=== PATIENT | female | born 1965 ===

== ENCOUNTER 2017-01-26 18:07 | Emergency (ER) | payer BC ==
[2017-01-26 18:26] VITALS: RESP 18
[2017-01-26] MEDS ORDERED: Lidocaine 5% Patch TD STA (19:12)
[2017-01-26] MEDS ORDERED: Lidocaine 5% Patch TD ONE (19:16)
--- NOTE | 2017-01-26 19:37 | ED PDOC ---
HPI: Trauma/Fall - HPI Time Seen by Provider: 01/26/17 18:41 Chief Complaint (Nursing): Rib Injury Chief Complaint (Provider): Left Rib Pain History Per: Patient History/Exam Limitations: no limitations Onset/Duration Of Symptoms: Days (6) Severity: Mild Additional History Per: Patient Additional Complaint(s): 51 y/o female c/o right sided rib pain that started 6 days ago after falling out of bed at 02:30 am. Pain is sharp and constant. Patient took Ibuprofen and Aleve, but over the last 3 days she developed cough with greenish sputum and SOB. At work today she felt a sudden sharp pain that felt like "a snap" while she was pushing up from a low table. Reports mild rhinorrhea, but denies fever or sore throat. PMD: Dr. Monten[place]ro Past Medical History Reviewed: Historical Data, Nursing Documentation, Vital Signs Vital Signs: Last Vital Signs Temp 98.3 F 01/26/17 21:00 Pulse 81 01/26/17 21:00 Resp 18 01/26/17 21:00 BP 164/104 H 01/26/17 21:00 Pulse Ox 99 01/26/17 21:00 - Medical History PMH: Asthma, Bronchitis Denies: Chronic Kidney Disease - Surgical History Surgical History: (3) Other surgeries: Leep procedure - Family History Family History: States: Hypertension Other Family History: Cancer - Social History Current smoker - smoking cessation education provided: Yes Alcohol: Social Drugs: Denies - Home Medications Home Medications: Ambulatory Orders Medication Instructions Recorded Albuterol HFA [Ventolin HFA 90 2 puff IH [id number] #1 puff 01/26/14 mcg/actuation (8 g)] Azithromycin [Zithromax] 250 mg PO DAILY #4 tab 01/26/14 Codeine Phosphate/Promethazi 5 ml PO QPM PRN #30 ml 01/26/14 [Prometh/Codeine 10 mg/5 ml-6.25 mg/5 ml 120 M] Prednisone 50 mg PO DAILY #4 tab 01/26/14 Azithromycin [Zithromax] 250 mg PO DAILY #6 dose 01/26/17 Ibuprofen [Motrin Tab] 600 mg PO Q8 PRN #60 tab 01/26/17 Lidocaine 5% [Lidoderm] 1 ea TD DAILY PRN #20 patch 01/26/17 - Allergies Allergies/Adverse Reactions: Allergies Allergy/AdvReac Type Severity Reaction Status Date / Time No Known Allergies Allergy Verified 01/26/14 10:04 Review of Systems ROS Statement: Except As Marked, All Systems Reviewed And Found Negative Constitutional: Negative for: Fever ENT: Positive for: Nose Discharge. Negative for: Throat Pain Respiratory: Positive for: Cough (greenish sputum) Musculoskeletal: Positive for: Other (Right sided rib pain) Physical Exam - Reviewed Nursing Documentation Reviewed: Yes Vital Signs Reviewed: Yes - Physical Exam Appears: Positive for: Non-toxic, In Acute Distress Head Exam: Positive for: ATRAUMATIC, NORMOCEPHALIC Skin: Positive for: Warm, Dry Eye Exam: Positive for: EOMI, PERRL ENT: Positive for: Normal ENT Inspection Neck: Positive for: Painless ROM, Supple Cardiovascular/Chest: Positive for: Regular Rate, Rhythm, Other (RIGHT lateral wall tenderness palpation). Negative for: Murmur Respiratory: Positive for: Normal Breath Sounds, Wheezing (end expiratory wheeze RIGHT lower lobe). Negative for: Rales, Rhonchi, Respiratory Distress Gastrointestinal/Abdominal: Positive for: Soft. Negative for: Tenderness Back: Positive for: Normal Inspection. Negative for: Vertebral Tenderness Extremity: Positive for: Normal ROM. Negative for: Deformity Lymphatic: Negative for: Adenopathy Neurologic/Psych: Positive for: Alert. Negative for: Motor/Sensory Deficits - ECG O2 Sat by Pulse Oximetry: 90 (RA) Pulse Ox Interpretation: Normal Medical Decision Making Medical Decision Making: Impression: * Chest wall pain Plans: * Tylenol * Toradol * XRAY right rib DDx: * Rib fracture vs Pnemothorax vs Pneumonia vs effusion * CXR unremarkable. Pt feeling better. Stable for dc. Advised f/u PMD for reevaluation of pain and blood pressure. Lifestyle modifications advised at this time. Scribe Attestation: Documented by Rowena andrade, acting as a scribe for Lurdes Arias MD Provider Scribe Attestation: All medical record entries made by the Scribe were at my direction and personally dictated by me. I have reviewed the chart and agree that the record accurately reflects my personal performance of the history, physical exam, medical decision making, and the department course for this patient. I have also personally directed, reviewed, and agree with the discharge instructions and disposition. Disposition - Clinical Impression Clinical Impression: Rib injury, Bronchitis - Disposition Referrals: Gregg Sutton MD [Family Provider] - 01/29/17 Disposition: Routine/Home Disposition Time: 20:00 Condition: GOOD Additional Instructions: PLEASE FOLLOW UP WITH DR SUTTON TO HAVE YOUR BLOOD PRESSURE REEVALUATED TAKE MEDICATIONS PRESCRIBED RETURN TO ER FOR WORSENING SYMPTOMS Prescriptions: Azithromycin [Zithromax] 250 mg PO DAILY #6 dose Ibuprofen [Motrin Tab] 600 mg PO Q8 PRN #60 tab PRN Reason: Pain, Moderate (4-7) Lidocaine 5% [Lidoderm] 1 ea TD DAILY PRN #20 patch PRN Reason: PAIN Instructions: Acute Bronchitis (ED), Hypertension (ED), Rib Contusion (ED) Forms: [employer] (Polish)
[2017-01-26 21:19] VITALS: BP 164/104; PULSE 81; TEMP 98.3
--- NOTE | 2017-01-27 13:22 | RAD ---
HISTORY: fall rib pain cough COMPARISON: No prior. TECHNIQUE: Chest PA and lateral FINDINGS: LUNGS: No active pulmonary disease. PLEURA: No significant pleural effusion identified. No pneumothorax apparent. CARDIOVASCULAR: Normal. OSSEOUS STRUCTURES: No significant abnormalities. VISUALIZED UPPER ABDOMEN: Normal. OTHER FINDINGS: None. IMPRESSION: No active disease.
[2017-01-27 23:55] VITALS: O2SAT 90
== END 2017-01-26 21:19 | disposition home or self-care (01) ==
LOC: H.ER 18:07
DX: S29.9XXA Unspecified injury of thorax, initial encounter (principal); W06.XXXA Fall from bed, initial encounter; J40 Bronchitis, not specified as acute or chronic; F17.200 Nicotine dependence, unspecified, uncomplicated
CPT/HCPCS: 71101; 81025; 96372; 99284; J1885

== ENCOUNTER 2017-04-10 09:57 | Emergency (ER) | payer BC ==
[2017-04-10 10:05] VITALS: BP 200/105; PULSE 124; RESP 22; TEMP 98.2; O2SAT 97
[2017-04-10] MEDS ORDERED: Oxycodone/Acetaminophen 5/325 mg Tab PO STA (10:29)
--- NOTE | 2017-04-10 10:29 | ED PDOC ---
HPI: Back Time Seen by Provider: 04/10/17 09:59 Chief Complaint (Nursing): Back Pain Chief Complaint (Provider): Back Pain Additional Complaint(s): 51 yo female, no PMH, presents to ED with complaint sof rigth sided back pain radiating down RLE. no bowel or bladder dysfunction. acc to pt she lifted a bucket of water last night and the pain developed soon after. pt took Motrin at home and applied Lioderm patch with mild relief obtained. Pt ambulating into ED room with steady gait. Past Medical History Reviewed: Nursing Documentation, Vital Signs Vital Signs: Last Vital Signs Temp 98.2 F 04/10/17 10:04 Pulse 124 H 04/10/17 10:04 Resp 22 04/10/17 10:04 BP 200/105 H 04/10/17 10:04 Pulse Ox 97 04/10/17 10:04 - Medical History PMH: Asthma, Bronchitis Denies: Chronic Kidney Disease - Surgical History Surgical History: (3) - Family History Family History: States: Hypertension - Living Arrangements Living Arrangements: With Family - Social History Current smoker - smoking cessation education provided: No Alcohol: Social Drugs: Denies - Home Medications Home Medications: Ambulatory Orders Medication Instructions Recorded Albuterol HFA [Ventolin HFA 90 2 puff IH [id number] #1 puff 01/26/14 mcg/actuation (8 g)] Azithromycin [Zithromax] 250 mg PO DAILY #4 tab 01/26/14 Codeine Phosphate/Promethazi 5 ml PO QPM PRN #30 ml 01/26/14 [Prometh/Codeine 10 mg/5 ml-6.25 mg/5 ml 120 M] Prednisone 50 mg PO DAILY #4 tab 01/26/14 Azithromycin [Zithromax] 250 mg PO DAILY #6 dose 01/26/17 Ibuprofen [Motrin Tab] 600 mg PO Q8 PRN #60 tab 01/26/17 Lidocaine 5% [Lidoderm] 1 ea TD DAILY PRN #20 patch 01/26/17 Cyclobenzaprine [Cyclobenzaprine 10 mg PO TID #20 tab 04/10/17 HCl] oxyCODONE/Acetaminophen [Percocet 1 ea PO Q6 PRN #10 tab 04/10/17 5/325 mg Tab] - Allergies Allergies/Adverse Reactions: Allergies Allergy/AdvReac Type Severity Reaction Status Date / Time No Known Allergies Allergy Verified 01/26/14 10:04 Review of Systems ROS Statement: Except As Marked, All Systems Reviewed And Found Negative Musculoskeletal: Positive for: Back Pain Physical Exam - Reviewed Nursing Documentation Reviewed: Yes Vital Signs Reviewed: Yes - Physical Exam Appears: Positive for: Non-toxic, No Acute Distress, Uncomfortable Head Exam: Positive for: ATRAUMATIC, NORMAL INSPECTION, NORMOCEPHALIC Skin: Positive for: Normal Color, Warm, DRY Eye Exam: Positive for: EOMI, Normal appearance, PERRL ENT: Positive for: Normal ENT Inspection Neck: Positive for: Normal, Painless ROM Cardiovascular/Chest: Positive for: Regular Rate, Rhythm Respiratory: Positive for: CNT, Normal Breath Sounds Gastrointestinal/Abdominal: Positive for: Normal Exam, Bowel Sounds, Soft Back: Positive for: Normal Inspection, Other (Right sided LS parapsinal tnedenress. ). Negative for: Vertebral Tenderness Extremity: Positive for: Normal ROM Neurologic/Psych: Positive for: Alert, Oriented - ECG O2 Sat by Pulse Oximetry: 97 Medical Decision Making Medical Decision Making: Medicated with percocet PO and flexeril. good relief obtained on re-haroon Repeat BP: 148/88 P: 68 Disposition - Clinical Impression Clinical Impression: Back disorder - Patient ED Disposition Is Patient to be Admitted: No - Disposition Disposition: Routine/Home Disposition Time: 12:42 Condition: STABLE Prescriptions: Cyclobenzaprine [Cyclobenzaprine HCl] 10 mg PO TID #20 tab oxyCODONE/Acetaminophen [Percocet 5/325 mg Tab] 1 ea PO Q6 PRN #10 tab PRN Reason: Pain, Severe (8-10) Instructions: Back Pain (ED) Forms: [employer] ([place]grin), [facility] ED School/Work Excuse
[2017-04-10] MEDS ORDERED: Oxycodone/Acetaminophen 5/325 mg Tab ONE (10:38)
== END 2017-04-10 13:00 | disposition home or self-care (01) ==
LOC: H.ER 09:57
DX: M54.9 Dorsalgia, unspecified (principal); J45.909 Unspecified asthma, uncomplicated